=== PATIENT | male | born 1990 | race Caucasian/White ===

== ENCOUNTER 2022-03-26 05:38 | Day surgery (SDC) | payer OTHER ==
[~2022-03-26] VITALS: Ht 177.8 cm; Wt 72.7 kg
[~2022-03-26 05:38] MED LIST: CARAFATE1 GM; CARAFATE1 GM PO; MELATONIN5 M2 PO; MIRTAZAPINE45 MG PO; OMEPRAZOLE40 MG PO
[2022-03-26] MEDS ORDERED: LEVOTHYROXINE25 MC1 PO (05:55)
--- NOTE | 2022-03-26 08:33 | NUR ---
03/26/22 0833 Nina Ramon 0817 PT TO PACA SLEEPY, O2 IN PLACE VIA NASAL CANNULA, PT WAS ABLE TO POSITION HIMSELF ON HIS BACK WITHOUT ASSIST. 0820 O2 TURNED OFF PT MAINTAINS SATS ABOVE 95%. 0830 PT SITTING UP IN DENIES BEING DIZZY OR HAVING NAUSEA OR PAIN.
--- NOTE | 2022-03-30 16:51 | PATH ---
[facility] [address], [place] [address] Signed SPECIMEN(S): A DUODENAL BULB BIOPSY SPECIMEN(S): B ANTRUM/PYLORUS BIOPSY SPECIMEN(S): C LOW ESOPHAGEAL BIOPSY SPECIMEN(S): D MID ESOPHAGEAL BIOPSY SPECIMEN(S): E TERMINAL ILEUM BIOPSY SPECIMEN(S): F CECAL BIOPSY SPECIMEN(S): G RECTAL BIOPSY SPECIMEN SOURCE: A. DUODENAL BULB BIOPSY B. ANTRUM/PYLORUS BIOPSY C. LOW ESOPHAGEAL BIOPSY D. MID ESOPHAGEAL BIOPSY E. TERMINAL ILEUM BIOPSY F. CECAL BIOPSY G. RECTAL BIOPSY CLINICAL HISTORY: Reflux, rectal bleeding. FINAL PATHOLOGIC DIAGNOSIS: A. Duodenal bulb, biopsy: - Duodenal bulb-type mucosa with no histopathologic abnormality. - Negative for increased intraepithelial lymphocytes. - .Negative for dysplasia or malignancy. B. Stomach, antrum/pylorus, biopsy: - Antral and oxyntic mucosa with chronic, inactive gastritis. - Negative for Helicobacter organisms on HE stain. - Negative for dysplasia or malignancy. C. Esophagus, lower, biopsy: - Reflux esophagitis, - Negative for intestinal metaplasia, dysplasia, or malignancy. D. Esophagus, mid, biopsy: - Reflux esophagitis. - Negative for increased intraepithelial eosinophils. - Negative for intestinal metaplasia, dysplasia, or malignancy. E. Terminal ileum, biopsy: - Ileal mucosa with no histopathologic abnormality. - Negative for active inflammation or granulomas. - Negative dysplasia or malignancy. F. Colon, cecum, biopsy: PATIENT NAME: BILLCalvinKAE DEVRIES PATHOLOGY DATE OF : 89 REPORT #: [id number] PHYSICIAN: TOVA STYLES PCP: [facility] [employer] REPORT IS CONFIDENTIAL AND NOT TO BE RELEASED WITHOUT AUTHORIZATION [facility] [address], [place] [address] Signed - Colonic mucosa with focal minimal crypt architectural distortion. - Negative for granulomas, dysplasia, or malignancy. - See comment. G. Rectum, biopsy: - Colorectal mucosa with focal minimal crypt architectural distortion. - Negative for granulomas, dysplasia, or malignancy. - See comment. COMMENT: Regarding specimens F and G: Sections demonstrate colorectal mucosa with focal subtle crypt architectural distortion. No active inflammation, significant lamina propria lymphoplasmacytosis, ulcerations, or granulomas are identified. There is also no Paneth cell metaplasia identified within the rectal biopsy. Overall, the findings are non-specific and suggestive of chronic injury. The differential diagnosis includes infectious etiologies, medication-induced injury, or inflammatory bowel disease, though less favored due to the subtle findings. Clinical correlation is recommended. NAL:[facility]:C2NR MICROSCOPIC EXAMINATION: Histologic sections of all submitted blocks are examined by light microscopy. These findings, together with the gross examination, support the pathologic diagnosis. GROSS DESCRIPTION: Seven specimens are received in seven containers, labeled "LS." A. The specimen, labeled "LS, duodenum biopsy," is received in formalin and consists of two lamb soft tissue fragments that measure 0.2 cm in greatest dimension. The specimen is entirely submitted in cassette (A1). B. The specimen, labeled "LS, antrum biopsy," is received in formalin and consists of two lamb soft tissue fragments that measure 0.1 to 0.2 cm in greatest dimension. The specimen is entirely submitted in cassette (B1). C. The specimen, labeled "LS, distal esophagus biopsy," is received in formalin and consists of two lamb soft tissue fragments that measure 0.3 cm in greatest dimension. The specimen is entirely submitted in cassette (C1). D. The specimen, labeled "LS, mid esophagus biopsy," is received in formalin and consists of a one lmab soft tissue fragment that measures 0.3 cm in greatest PATIENT NAME: KAE VILLALTA PATHOLOGY DATE OF : [birth year] REPORT #: [id number] PHYSICIAN: TOVA STYLES PCP: TEO VIGIL REPORT IS CONFIDENTIAL AND NOT TO BE RELEASED WITHOUT AUTHORIZATION [facility] [address], [place] [address] Signed dimension. The specimen is entirely submitted in cassette (D1). E. The specimen, labeled "LS, terminal ileum biopsy," is received in formalin and consists of one lamb soft tissue fragment that measures 0.2 cm in greatest dimension. The specimen is entirely submitted in cassette (E1). F. The specimen, labeled "LS, cecum biopsy," is received in formalin and consists of two lamb soft tissue fragments that measure 0.1 to 0.2 cm in greatest dimension. The specimen is entirely submitted in cassette (F1). G. The specimen, labeled "LS, rectum biopsy," is received in formalin and consists of one lamb soft tissue fragment that measures 0.2 cm in greatest dimension. The specimen is entirely submitted in cassette (G1). JS (under the direct supervision of a pathologist) The Gross Description was prepared using a voice recognition system. The report was reviewed for accuracy; however, sound-alike word errors, addition and/or deletions may occur. If there is any question about this report, please contact Client Services. PERFORMING LABORATORY: The technical component was performed by [facility], [address] [place] [id number] (CLIA# [id number]). [facility] [address] [place] [id number] (CLIA# [id number]). Diagnostician: Irasema Ramírez MD Pathologist Electronically Signed 03/30/2022 Copies: ~ PATIENT NAME: KAE VILLALTA PATHOLOGY DATE OF : [birth year] REPORT #: [id number] PHYSICIAN: TOVA STYLES PCP: TEO VIGIL REPORT IS CONFIDENTIAL AND NOT TO BE RELEASED WITHOUT AUTHORIZATION
--- NOTE | 2022-03-31 11:40 | OR ---
[facility] [address] [place], [place] [address] Signed DATE OF OPERATION: 03/26/2022 SURGEON: Mika David MD PREOPERATIVE DIAGNOSES: 1. Persistent episodic epigastric pain, partially responsive to Carafate. 2. Episodic rectal bleeding. 3. Elevated fecal calprotectin. POSTOPERATIVE DIAGNOSES: 1. Poor flap valve and distal esophagitis with mild antral gastritis. 2. Mild proctitis, normal-appearing colon and ilium. PROCEDURES: 1. Esophagogastroduodenoscopy with biopsy. 2. Total colonoscopy to cecum with intubation of ileum and biopsy of ileum, cecum and rectum. ANESTHESIA: Intravenous sedation; fentanyl 150 mcg, Versed 8 mg total. INDICATION: This 31-year-old white man is a prisoner at [facility] and a patient of DILAN Frazier. He was referred for consideration of colonoscopy related to rectal bleeding. His blood per rectum is dark red. He was considered likely to have peptic disease as he had epigastric pain and left upper abdominal pain going on for at least a year. He is empirically treated with Carafate and episodic PPI medication which has helped his symptoms of pain. He is most recently not having blood per rectum. He was noted to have an elevated fecal calprotectin, sedimentation rate was 0, C-reactive protein only 4.4. On the basis of these findings and the fecal calprotectin of 216 (normal less than 50), he is recommended for upper endoscopy and colonoscopy. Risk of bleeding, infection, and perforation were related to him. He understands and wished to proceed. FINDINGS: Upper endoscopy did show mild distal esophagitis, but no evidence of Prieto's epithelium. There was no stricture. There was a poor flap valve. The stomach had mild antral gastritis. The duodenum was normal. On colonoscopy, the prep was good. Complete colonoscopy was undertaken of the cecum and intubation of the ileum was accomplished without problem. Ileal biopsies were obtained Electronically Signed By: MIKA DAVID MD 03/31/22 1140 PATIENT NAME: KAE VILLALTA OPERATIVE REPORT DATE OF : [birth year] REPORT #: [id number] PHYSICIAN: MIKA DAVID MD PCP: TEO VIGIL REPORT IS CONFIDENTIAL AND NOT TO BE RELEASED WITHOUT AUTHORIZATION [facility] [address] [place], [place] [address] Signed nevertheless as were cecal biopsies. On colonoscopy, he had no diverticular formations or polyps or colitis but did have mild proctitis. Retroflexed view showed no sign of hemorrhoids and there was no evidence of anal fissure. DESCRIPTION OF PROCEDURE: The patient was brought to the endoscopy suite and given topical hypopharyngeal lidocaine anesthesia. He was given intravenous sedation to the point of slurred speech and nystagmus with full cardiopulmonary monitoring. A bite block was placed. The Olympus video upper endoscope was passed in the hypopharynx. The vocal cords appeared normal. The scope was advanced to the esophagus, throughout its length it was normal except for the distal esophagus, which had mild inflammatory change. The scope was advanced to the stomach, which was insufflated with air. Rugal folds were normal as was the antral motility. The pylorus was normal. The scope was passed through the pylorus into the duodenum. The 2nd and 3rd portions were normal as was the bulb. The bulb was biopsied nevertheless. The scope was withdrawn and examination of the antrum showed mild mucosal inflammatory change but no ulceration or erosion. Biopsies were obtained for both SKYE and pathologic testing. Retroflexed view was undertaken showing a rather poor flap valve. The scope was withdrawn to the distal esophagus where biopsies were obtained of what appeared to be chronic inflammatory mucosal changes of the esophagus, but no evidence of Prieto's epithelium. Careful withdrawal mid esophagus as well. The scope was removed without other findings noted. Plans were then made for colonoscopy. Digital rectal examination was normal. An Olympus video colonoscope was passed in the rectum and manipulated throughout the colon ultimately intubating the cecum itself. The ileocecal valve was easily intubated and the ilium appeared normal. Biopsies were obtained nevertheless. The scope was withdrawn and biopsies then taken of the cecum which were also normal in appearance. Careful withdrawal of scope showed no sign of abnormality throughout the colon. In the rectum, there was mild inflammatory change possibly bowel prep related. Biopsies were obtained. Retroflexed view showed no internal hemorrhoids. Careful withdrawal of scope through the anal canal several times showed no sign of fissure. The scope was removed and the patient was taken to the recovery room in good condition. CONCLUDING DIAGNOSES: 1. Probable reflux esophagitis with poor flap valve. Would recommend PPI medication 20 mg daily persistently. 2. Uncertain if findings of proctitis are pathologic or not. Would await biopsy before initiating any specific treatment. We will see him back in [facility] next time I am there and review his reports and assess his progress. Electronically Signed By: MIKA DAVID MD 03/31/22 1140 PATIENT NAME: KAE VILLALTA OPERATIVE REPORT DATE OF : [birth year] REPORT #: [id number] PHYSICIAN: MIKA DAVID MD PCP: TEO VIGIL REPORT IS CONFIDENTIAL AND NOT TO BE RELEASED WITHOUT AUTHORIZATION [place] [id number] [place], [place] [address] Signed MD KILLIAN Young/JAMARCUS /[id number] cc: DILAN Morton Copies: TEO VIGIL ~ Electronically Signed By: MIKA DAVID MD 03/31/22 1140 PATIENT NAME: KAE VILLALTA OPERATIVE REPORT DATE OF : [birth year] REPORT #: [id number] PHYSICIAN: MIKA DAVID MD PCP: TEO VIGIL REPORT IS CONFIDENTIAL AND NOT TO BE RELEASED WITHOUT AUTHORIZATION
== END 2022-03-26 08:45 | disposition home or self-care (01) ==
LOC: DS 05:38 → OPS 05:38 → DS 11:30 → OPS 11:30
PROVIDERS: ATTEND Surgery
PROC: 0DB28ZX Excision of Middle Esophagus, Via Natural or Artificial Opening Endoscopic, Diagnostic (ICD-10-PCS; 2022-03-26)
PROC: 0DB38ZX Excision of Lower Esophagus, Via Natural or Artificial Opening Endoscopic, Diagnostic (ICD-10-PCS; 2022-03-26)
PROC: 0DBH8ZX Excision of Cecum, Via Natural or Artificial Opening Endoscopic, Diagnostic (ICD-10-PCS; 2022-03-26)
PROC: 0DBP8ZX Excision of Rectum, Via Natural or Artificial Opening Endoscopic, Diagnostic (ICD-10-PCS; 2022-03-26)
PROC: 0DBB8ZX Excision of Ileum, Via Natural or Artificial Opening Endoscopic, Diagnostic (ICD-10-PCS; 2022-03-26)
PROC: 0DB98ZX Excision of Duodenum, Via Natural or Artificial Opening Endoscopic, Diagnostic (ICD-10-PCS; principal; 2022-03-26 07:00)
PROC: 0DB78ZX Excision of Stomach, Pylorus, Via Natural or Artificial Opening Endoscopic, Diagnostic (ICD-10-PCS; 2022-03-26 07:00)
DX: K29.50 Unspecified chronic gastritis without bleeding (principal); K62.89 Other specified diseases of anus and rectum; K21.00 Gastro-esophageal reflux disease with esophagitis, without bleeding
CPT/HCPCS: 99153; G0500; J2250; J3010; J7121